=== PATIENT | male | born 1990 | race Caucasian/White ===

== ENCOUNTER → 2021-06-17 14:17 | Outpatient (BNVA) | payer SELFPAY | PROVIDERS: Family Provider Pediatrics; PCP Family Medicine; Visit Provider Internal Medicine | DX: K75.4 Autoimmune hepatitis (principal); K72.10 Chronic hepatic failure without coma | CPT/HCPCS: 80053; 82105; 82140; 83036; 83550; 84443 ==

== ENCOUNTER 2021-06-21 06:50 | Outpatient (CLI) | payer SELFPAY ==
--- NOTE | 2021-06-21 07:01 | US_ITS ---
WS: [id number] ULTRASOUND ABDOMEN LIMITED CLINICAL INFORMATION: ASCITES COMPARISON: None. FINDINGS: Ultrasound used for paracentesis marking. Moderate ascites. US/US abdomen limited [id number] IMPRESSION: Ultrasound used for paracentesis marking
[2021-06-21 07:17] VITALS: BMI 26.8
[2021-06-21 07:21] VITALS: BP 125/82; PULSE 127; RESP 18; TEMP 36.8; O2SAT 97
[2021-06-21 09:01] VITALS: BP 120/63; PULSE 116; RESP 18; TEMP 37.2; O2SAT 98
--- NOTE | 2021-06-21 09:06 | PM.ACPR ---
Acute Procedures Paracentesis: Time out performed: Yes Indication: Ascites Procedure: diagnostic paracentesis Location: LLQ Local anesthetic used: lidocaine 1% Amount of anesthesia used (ml): 10 Bedside ultrasound used: yes, Ascites confirmed and location marked Preparation: sterile prep and drape and 11 blade used to make rick in skin Amount of fluid obtained (ml): 4,500 Post procedure exam: awake, alert, normal BP, normal HR and normal SpO2 Patient tolerated procedure: well Complications: none
[2021-06-21 10:05] LABS: Apprearance, Body Fluid CLOUDY; Body Fluid Polynuclear #Cells 0.161; Body Fluid Specific Gravity 1.015; Body Fluid WBC 272 /uL; Monocytes # Body Fluid 0.111; RBC, Body Fluid 0 10^3/uL
[2021-06-21 10:55] LABS: Albumin Body Fluid 0.3 g/dL; Amylase Body Fluid 22 U/L; Cholesterol Body Fluid < 4 mg/dL (0-200); Fluid Alkaline Phos. 12 IU/L; LDH Body Fluid 28 U/L; Total Protein Body Fluid 0.3 g/dL; Triglycerides Body Fluid 117 mg/dL (0-150); Uric Acid Body Fluid 2 mg/dL
== END 2021-06-21 06:51 | disposition home or self-care (01) ==
PROVIDERS: PCP Internal Medicine; Visit Provider Internal Medicine
PROC: (CPT 49082; principal; 2021-06-21 08:00)
DX: R18.8 Other ascites (principal)
CPT/HCPCS: 49082; 76705; 80500; 82042; 82150; 82465; 82945; 83615; 83986; 84075; 84157; 84315; 84478; 84560; 87015; 87070; 87075; 87102; 87116; 87205; 87206; 87801; 88112; 88305; 89050

== ENCOUNTER → 2021-06-28 10:00 | Day surgery (SDC) | payer MEDICAID, SELFPAY ==
--- NOTE | 2021-06-28 10:09 | US_ITS ---
WS: [id number] Abdominal ultrasound, limited. History: Evaluate for ascites. Comparison: None. All 4 quadrants are imaged by ultrasound to evaluate for ascites. Moderate to large amount of ascites in all 4 quadrants. US/US abdomen lmt fluid [id number] IMPRESSION: Moderately large amount of peritoneal ascites. Imaging performed prior to Dr. Jesse boo performing a paracentesis.
== END ==
PROVIDERS: PCP Internal Medicine; Visit Provider Internal Medicine
PROC: (CPT 49082; principal; 2021-06-28 10:00)
DX: R18.8 Other ascites (principal)
CPT/HCPCS: 49082; 76705

== ENCOUNTER 2021-07-05 06:46 | Day surgery (SDC) | payer MEDICAID, SELFPAY ==
[2021-07-01 08:23] VITALS: BMI 25.8
[2021-07-05 07:05] VITALS: BP 125/80; PULSE 131; RESP 22; TEMP 36.9; O2SAT 97
[2021-07-05 08:20] VITALS: BP 114/66
--- NOTE | 2021-07-05 08:42 | PM.ACPR ---
Acute Procedures Paracentesis: Time out performed: Yes Indication: Ascites Procedure: therapeutic paracentesis Location: LLQ Local anesthetic used: lidocaine 1% Amount of anesthesia used (ml): 10 Bedside ultrasound used: no Preparation: sterile prep and drape and 11 blade used to make rick in skin Amount of fluid obtained (ml): 6,850 Fluid: cloudy Post procedure exam: awake, alert, normal BP, normal HR and normal SpO2 Patient tolerated procedure: well Complications: none
== END 2021-07-05 08:43 | disposition home or self-care (01) ==
LOC: GILAB 06:47
PROVIDERS: PCP Internal Medicine; Visit Provider Internal Medicine
PROC: (CPT 49082; principal; 2021-07-05 08:00)
DX: R18.8 Other ascites (principal)
CPT/HCPCS: 49082

== ENCOUNTER 2021-07-12 06:53 | Day surgery (SDC) | payer MEDICAID, SELFPAY ==
[2021-07-08 13:46] VITALS: BMI 28.2
[2021-07-12 07:10] VITALS: BP 117/71; PULSE 106; RESP 18; TEMP 36.6; O2SAT 98; BMI 28.2
--- NOTE | 2021-07-12 08:09 | PM.ACPR ---
Acute Procedures Paracentesis: Time out performed: Yes Indication: Ascites Procedure: therapeutic paracentesis Location: LLQ Local anesthetic used: lidocaine 1% Amount of anesthesia used (ml): 10 Bedside ultrasound used: no Preparation: sterile prep and drape Amount of fluid obtained (ml): 5,200 Fluid: cloudy Post procedure exam: awake, alert Patient tolerated procedure: no complications Complications: none
== END 2021-07-12 07:50 | disposition home or self-care (01) ==
PROVIDERS: PCP Internal Medicine; Visit Provider Internal Medicine
PROC: (CPT 49082; principal; 2021-07-12 08:00)
DX: R18.8 Other ascites (principal)
CPT/HCPCS: 49082

== ENCOUNTER 2022-03-31 09:47 | Outpatient (CLI) | payer BC, MEDICAID, SELFPAY ==
[2022-03-31 10:22] LABS: Basophils % 0.9 %; Eosinophils % 2.8 %; Hematocrit 23.9 % (42.0-52.0); Hemoglobin 6.9 g/dL (11.7-16.6); Lymphocytes # 0.3 10^3/uL (0.8-4.8); Lymphocytes % 23.1 %; Mean Corpuscular HGB Conc 28.9 g/dL (30.0-36.0); Mean Corpuscular Hemoglobin 21.3 pg (28.0-34.0); Mean Corpuscular Volume 73.8 fl (80-94); Monocytes # 0.2 10^3/uL (0.2-0.9); Monocytes % 15.7 %; Neutrophils % 57.5 %; Nucleated Red Blood Cells % 0 %; Platelet Count 78 10^3/cmm (130-400); Red Blood Count 3.24 10^6/uL (4.1-5.3); Red Cell Distribution Width 17.5 % (12.1-15.1); White Blood Count 1.1 10^3/uL (4.0-10.0)
[2022-03-31 10:35] LABS: Alanine Aminotransferase 26 U/L (0-41); Albumin Level 3.2 g/dL (3.5-5.2); Alkaline Phosphatase 88 U/L (40-130); Anion Gap 10.5 (5-19); Aspartate Amino Transferase 27 U/L (0-40); Blood Urea Nitrogen 13 mg/dL (6-20); Calcium 8.3 mg/dL (8.5-10.5); Carbon Dioxide 23 mmol/L (22-29); Chloride 108 mmol/L (98-107); Globulin 2.5 g/dL (1.3-4.6); Glomerular Filtration Rate 196.6 mL/min (90-130); Glucose 89 mg/dL (65-115); Osmolality Calculated 286 mOsm/kg (285-295); Potassium 3.5 mmol/L (3.5-5.1); Sodium 138 mmol/L (136-145); Total Bilirubin 1.1 mg/dL (0.15-1.2); Total Protein 5.7 g/dL (6.6-8.7)
[2022-03-31 10:54] LABS: Neutrophils # 0.62 10^3/uL (1.8-7.7)
[2022-03-31 10:55] LABS: Slide Review Slide Review Perform
== END 2022-03-31 09:48 | disposition home or self-care (01) ==
LOC: LAB 09:49
PROVIDERS: PCP Internal Medicine; Visit Provider Internal Medicine
DX: K72.10 Chronic hepatic failure without coma (principal); K75.4 Autoimmune hepatitis
CPT/HCPCS: 36415; 80053; 85025